=== PATIENT | male | born 1950 ===

== ENCOUNTER 2019-10-09 17:08 | Emergency (ER) | payer OTHER ==
[~2019-10-09] VITALS: Ht 180.3 cm; Wt 117.9 kg
[~2019-10-09 17:08] MED LIST: COUMADIN10 MG; ORPH100T PO; TOPROL XL100 MG; ULTRAM50 MG PO
[2019-10-09] MEDS ORDERED: ZESTRIL5 MG (17:44)
== END 2019-10-09 22:56 | disposition home or self-care (01) ==
LOC: ER 17:08
DX: J02.9 Acute pharyngitis, unspecified (principal); J32.8 Other chronic sinusitis; J06.9 Acute upper respiratory infection, unspecified

== ENCOUNTER 2021-04-26 13:57 | Emergency (ER) | payer OTHER ==
[~2021-04-26] VITALS: Ht 180.3 cm; Wt 111.1 kg
[~2021-04-26 13:57] MED LIST changes: +ZESTRIL5 MG
[2021-04-26] MEDS ORDERED: XARELTO10 MG (14:05)
[2021-04-26] MEDS ORDERED: LIPITOR20 MG (14:06)
[2021-04-26] MEDS ORDERED: FLECAINIDE ACET50 MG (14:07)
== END 2021-04-26 20:09 | disposition home or self-care (01) ==
LOC: ER 13:57
DX: U07.1 COVID-19 (principal); J12.82 Pneumonia due to coronavirus disease 2019; B33.8 Other specified viral diseases